=== PATIENT | female | born 2000 | race Caucasian/White ===

== ENCOUNTER → 2021-01-02 | Outpatient (REF) | payer OTHER | LOC: M LAB REF 12:19 | PROVIDERS: ATTEND Obstetrics & Gynecology | DX: Z34.03 Encounter for supervision of normal first pregnancy, third trimester (principal) ==

== ENCOUNTER 2021-02-03 11:51 | Inpatient (IN) | payer OTHER ==
[~2021-02-03] VITALS: Ht 157.5 cm; Wt 102.6 kg
[2021-02-03] VITALS (11 sets, daily range): BP systolic 107–143; BP diastolic 66–102
[2021-02-03] MEDS ORDERED: MULTTAB20 PO (12:13)
[2021-02-03] MEDS ORDERED: HOME MED LIST COMPLETE! XX SCH (12:15)
[2021-02-03] MEDS ORDERED: TRANEXAMIC ACID INJection 1,000 MG in NS 100 ML IV PRN (12:40)
[2021-02-03] MEDS ORDERED: OXYTOCIN DRIP 30 UNITS in IV 1 EA IV PRN (12:40)
[2021-02-03] MEDS ORDERED: METHYLERGONOVINE MALEATE 0.2 MG/ML VIAL (J2210) IM PRN (12:40)
[2021-02-03] MEDS ORDERED: LIDOCAINE 1% MDV 20ML VIAL INFIL PRN (12:40)
[2021-02-03] MEDS ORDERED: CARBOPROST TROMETHAMINE 250 MCG/ML AMP IM PRN (12:40)
[2021-02-03] MEDS ORDERED: LACTATED RINGER'S 1000 ML IV STA (12:40)
[2021-02-03 13:12] LABS: HEMATOCRIT 37.3 % (36.0-47.0); HEMOGLOBIN 12.7 g/dl (12.0-15.5); MEAN CORPUSCULAR HEMOGLOBIN 29.3 pg (27.0-33.0); MEAN CORPUSCULAR VOLUME 86.1 fl (80.0-96.0); PLATELET COUNT, AUTOMATED 276 10^3/uL (150-450); RED BLOOD COUNT 4.33 10^6/uL (4.00-5.40)
[2021-02-03 14:19] LABS: ALT/SGPT 15 U/L (12-78); BILIRUBIN,TOTAL 0.5 MG/DL (0.2-1.0); CREATININE FOR GFR 0.59 MG/DL (0.55-1.30); GLOMERULAR FILTRATION RATE > 60.0 (>60); LDH LACTATE DEHYDROGENASE 178 U/L (84-246); URIC ACID 4.6 MG/DL (2.6-6.0)
[2021-02-03 14:24] LABS: TOTAL PROTEIN,RANDOM URINE 35.6 MG/DL (0.0-12.0)
[2021-02-03] MEDS: miSOPROStol 50MCG 1/2 TABLET PO SCH ×2 (15:07→19:42)
--- NOTE | 2021-02-03 17:10 | HPEPDOC ---
Obstetrical History & Physical General Date of Admission Feb 03, 2021 at 11:51 Primary Care Physician: CHAR ESCOBAR CNM History of Present Illness Aster is a 20 year old at 39 5/7 with an ESTELLA of 02/05/2021 as confirmed by first trimester ultrasound who presents to labor and delivery for an elective IO L. She initiated her care in [place] and recently moved to the area and established at [facility] at 31 weeks. Her has been complicated by obesity. She denies uterine contractions, vaginal bleeding, pelvic pain, or loss of fluids. Reports active movement. Chief Complaint: Induction of labor Information Provided By: Patient Age: 20 : 1 Term: 0 Pre-term: 0 Abortions: 0 Livin Care Care: Good Care Dating Final EDC: Feb 05, 2021 Final EDC by: 1st trimester (US) LMP: May 02, 2020 Weeks + Days: 39.5 EGA at Admission: 39.5 Antepartum Course Height (inches): 62 Pre- weight (lbs.): 219 Admission Weight (lbs.): 224 Past Medical History Past Obstetrical History : Past Obstetrical History: Primg[employer] History: No pertinent history Past Medical History Medical History obesity Surgical History: Denies/None Family History Significant Family History: No pertinent family hx Social History Marital Status: Family situation: Spouse/partner home Psychosocial History: No pertinent psych hx * Smoker: non-smoker Alcohol: Denies Drugs: denies Abuse Violence Screening Have you been hit/kicked/slapp: No Have you been sexually assault: No Allergies Coded Allergies: No Known Allergies (Unverified , 02/03/21) Medications Scheduled No122/Iron/Folic Acid ( Multi Tablet) 1 Each Tablet, 1 TAB PO DAILY Physical Examination Physical Examination GENERAL: Alert and oriented times three. ABDOMEN: Gravid and non-tender to touch. FETUS: Is vertex (VTX) by sterile vaginal examination (SVE), fetus is vertex (VTX) by Rikki. LUNGS: breathing comfortably on room air, no use of accessory muscles. EXTREMITIES: mild bilateral pedal edema. No clonus.. Vital Signs/I&O Vital Signs Date Time Temp Pulse Resp B/P (MAP) Pulse Ox O2 Delivery O2 Flow Rate FiO2 02/03/21 16:05 99 142/92 (109) 02/03/21 12:10 97.6 18 Laboratory Data 24H LABS Laboratory Tests 2 02/03/21 11:59: Serology Scanned Report Hepatitis B Testing 02/03/21 12:52: Nucleated Red Blood Cells % (auto) 0.0, Glomerular Filtration Rate > 60.0, Uric Acid 4.6, Total Bilirubin 0.5, Aspartate Amino Transf (AST/SGOT) 13, Alanine Aminotransferase (ALT/SGPT) 15, Lactate Dehydrogenase 178, Syphilis Serology NONREACTIVE 02/03/21 13:39: Urine Random Creatinine 254.0, Urine Random Total Protein 35.6H, Coronavirus (COVID-19)(PCR) NEGATIVE Item Value Date Time Urine Random Creatinine 254.0 MG/DL 02/03/21 1339 Urine Random Total Protein 35.6 MG/DL H 02/03/21 1339 Item Value Date Time Creatinine 0.59 MG/DL 02/03/21 1252 Glomerular Filtration Rate > 60.0 02/03/21 1252 Uric Acid 4.6 MG/DL 02/03/21 1252 Total Bilirubin 0.5 MG/DL 02/03/21 1252 Alanine Aminotransferase (ALT/SGPT) 15 U/L 02/03/21 1252 Lactate Dehydrogenase 178 U/L 02/03/21 1252 Aspartate Amino Transf (AST/SGOT) 13 U/L 02/03/21 1252 CBC/BMP Laboratory Tests 02/03/21 12:52 Pertinent Laboratoy Data Blood Type: O- RBC Antibody Screen: Negative HIV: Negative Hepatitis B: Negative Hepatitis C: Negative Rapid Plasma Reagin: Nonreactive Rubella: Nonreactive (equivocal, needs rubella ) Varicella: Immune Chlamydia/Gonorrhea: Negative Group B Streptococcus: Negative Quad Screen Test: Declined Cystic Fibrosis: Declined Anatomy Ultrasound Ultrasound Date: Sep 19, 2020 Placenta Location: Anterior Normal Anatomy: Yes Placenta Previa: No Estimated Weight (grams): 299 Vaginal Examination Dilation: Fingertip Effacement: 30% Station: -3 Cervical Consistency: Medium Cervical Position: Posterior Presentation: Cephalic presentation Assessment Heart Rate (FHR): 145 Variability: Moderate Accelerations: Positive Decelerations: None Tocometer Contractions: No Multi-drug resistant Organism: No history of MDRO Assessment/Plan Assessment IUP at 39 5/7 weeks gestation, elective induction of labor, GBS negative, Category I FHR tracing Plan Admit to labor and delivery for induction. Counselled on misoprostol for cervical ripening, disa bulb for mechanical dilation, and IV pitocin for induction of labor Diet: regular. Group B Streptococcus (GBS) negative. Labs and intravenous (IV) per unit protocol. Anesthesia consult per patient request Lactated Ringers (LR): Bolus 800 mL prior to epidural, then at 125 mL/hr. Start Misoprostol per order. Pre-eclamptic labs ordered due to elevated BP on admission. Anticipate cervical ripening. C-S as appropriate. CHAR ESCOBAR CNM Feb 03, 2021 17:10
[2021-02-03] MEDS ORDERED: ACETAMINOPHEN 500 MG TAB PO PRN (17:15)
[2021-02-04] VITALS (17 sets, daily range): BP systolic 99–143; BP diastolic 54–90
[2021-02-04] MEDS: miSOPROStol 50MCG 1/2 TABLET PO SCH ×5 (03:05→16:34)
--- NOTE | 2021-02-04 12:02 | IPNPDOC ---
Obstetrical Progress Note Date of Service Feb 04, 2021 Subjective Pt comfortable, due for exam Objective Vital Signs Date Time Temp Pulse Resp B/P (MAP) Pulse Ox O2 Delivery O2 Flow Rate FiO2 02/04/21 08:31 97.5 83 129/71 (90) 02/04/21 06:28 14 Assessment Heart Rate Tracing: Category I Tocometer Contractions: Yes Frequency: regular, every 3-7 min. Sterile Vaginal Examination Dilation: 1cm Effacement (%): 50% Station: -1 Cervical Consistency: Medium Cervical Position: Posterior Assessment and Plan Age: 20 : 1 Term: 0 Status: Reassuring Anticipate: Vaginal Delivery Additional Comments Velasco balloon placed at this time. Will give next miso now OLVIN MAJANO MD Feb 04, 2021 12:02
[2021-02-04] MEDS ORDERED: OXYTOCIN DRIP 30 UNITS in IV 1 EA IV SCH (21:15)
[2021-02-04] MEDS ORDERED: LR 1,000 ML IV SCH (22:15)
--- NOTE | 2021-02-04 23:47 | IPNPDOC ---
Obstetrical Progress Note Date of Service Feb 04, 2021 Subjective Patient doing well, feeling her ctx. Objective Vital Signs Date Time Temp Pulse Resp B/P (MAP) Pulse Ox O2 Delivery O2 Flow Rate FiO2 02/04/21 22:48 86 16 121/73 (89) 02/04/21 22:16 97.9 Assessment Heart Rate (FHR): 125 Variability: Moderate Accelerations: Positive Decelerations: None Heart Rate Tracing: Category I Tocometer Contractions: Yes Frequency: irregular Sterile Vaginal Examination Dilation: 4 cm Effacement (%): 70% Station: -1 Cervical Consistency: Soft Cervical Position: Middle Postion/Presentation: Cephalic presentation Assessment and Plan Age: 20 : 1 Term: 0 Status: Reassuring Group B Streptococcus: Negative Anticipate: Vaginal Delivery Additional Comments AROM for clears at this time OLVIN MAJANO MD Feb 04, 2021 23:47
[2021-02-05] VITALS (34 sets, daily range): BP systolic 102–138; BP diastolic 55–84
[2021-02-05] MEDS ORDERED: FENTANYL 2MCG/ML ROPIVACAINE 0.2% IN 0.9% NACL 100ML IVBAG As Ordered ONE (00:42)
[2021-02-05] MEDS ORDERED: EPIDURAL/PCA KEYS XX PRN (01:05)
[2021-02-05] MEDS ORDERED: NALOXONE INJ 0.4MG/1ML VIAL (J2310 PER 1MG) IV PRN (01:05)
[2021-02-05] MEDS ORDERED: LACTATED RINGER'S 1000 ML IV PRN (01:05)
[2021-02-05] MEDS ORDERED: EPIDURAL COMMENT XX SCH (01:05)
[2021-02-05] MEDS ORDERED: ePHEDrine SULFATE 25 MG/5 ML(5MG/ML) SYRINGE IV PRN (01:05)
[2021-02-05] MEDS ORDERED: diphenhydrAMINE 50MG/ML VIAL (J1200) IV PRN (01:05)
[2021-02-05] MEDS ORDERED: REFRIGERATOR IV KEYS XX PRN (01:05)
[2021-02-05] MEDS ORDERED: ONDANSETRON 4MG/2ML VIAL IV PRN (01:05)
[2021-02-05] MEDS ORDERED: FENTANYL/ROPIVACAINE/NACL BAG 100 ML EPIDURAL SCH (01:05)
[2021-02-05] MEDS ORDERED: ePHEDrine SULFATE 25 MG/5 ML(5MG/ML) SYRINGE As Ordered ONE (01:22)
[2021-02-05] MEDS ORDERED: METHYLERGONOVINE MALEATE 0.2 MG TAB PO PRN (02:55)
[2021-02-05] MEDS ORDERED: DIBUCAINE 1% OINTMENT 30GM TOP PRN (02:55)
[2021-02-05] MEDS ORDERED: RHOGAM 300 MCG (1500 IU) INJ (J2790) IM SCH (02:55)
[2021-02-05] MEDS ORDERED: MEASLES,MUMPS,RUBELLA VACCINE INJ (MMR-II) (90707) SC SCH (02:55)
[2021-02-05] MEDS ORDERED: DOCUSATE SODIUM 100MG CAPSULE PO PRN (02:55)
[2021-02-05] MEDS ORDERED: ACETAMINOPHEN 500 MG TAB PO PRN (02:55)
--- NOTE | 2021-02-05 03:09 | DNPDOC ---
[facility] Delivery Note Delivery Note DATE OF DELIVERY: 02/05/2021 PREDELIVERY DIAGNOSIS: 39-6/7 weeks' gestation and elective induction of labor. POST DELIVERY DIAGNOSIS: Delivered. PROCEDURE: Spontaneous vaginal delivery. PENOLOGY TEACHER: Dr. Olvin Majano ANESTHESIA: Epidural. ESTIMATED BLOOD LOSS: 150 mL. FINDINGS: 6 pound 14 ounce male infant, Score 9/9, nuchal cord times 1, tight reduced at the perineum. DELIVERY SUMMARY: Patient is a 20-year-old 1 now para 1 who was admitted to labor and delivery for elective induction of labor. She got 6 doses of misoprostol for cervical ripening and a Velasco balloon was placed at 1156 once she reached 1 cm dilated. The Velasco balloon came out at 2124 and she was start ed on regular dose Pitocin. She was checked at 2335 and ruptured for clear fluid at that time. After AROM the patient made rapid progression to 10 cm dilated at 0146. The patient pushed with excellent effort and delivered a vigorous male with a tight nuchal cord reduced at the perineum. The rest of the infant body delivered atraumatically and after 30 second delay the c ord was clamped and cut. Attention was turned to the placenta which was expressed without difficulty. A first-degree perineal laceration was noted and repaired with a 3-0 Vicryl suture. Fundus was found to be firm with no expression of clots on fundal massage. Sponge and sharp counts correct. OLVIN MAJANO MD Feb 05, 2021 03:09
[2021-02-05] MEDS: PRENATAL VITAMINS CHEWABLE TABLET PO SCH (08:32)
[2021-02-05] MEDS: IBUPROFEN 600MG TAB PO PRN ×2 (08:33→20:28)
[2021-02-06 06:00] VITALS: BP 125/76
[2021-02-06] MEDS: PRENATAL VITAMINS CHEWABLE TABLET PO SCH (08:44)
[2021-02-06 09:20] LABS: HEMATOCRIT 36.5 % (36.0-47.0); HEMOGLOBIN 11.9 g/dl (12.0-15.5); MEAN CORPUSCULAR HEMOGLOBIN 29.2 pg (27.0-33.0); MEAN CORPUSCULAR HGB CONC 32.6 g/dl (32.0-36.5); MEAN CORPUSCULAR VOLUME 89.7 fl (80.0-96.0); PLATELET COUNT, AUTOMATED 247 10^3/uL (150-450); RED BLOOD COUNT 4.07 10^6/uL (4.00-5.40); WHITE BLOOD COUNT 15.7 10^3/uL (4.0-10.0)
--- NOTE | 2021-02-06 13:12 | IPNPDOC ---
Progress Note Date of Service: Feb 06, 2021 Progress Note SUBJECT: Status post . She has been ambulating, voiding spontaneously without issue and tolerating regular diet. Lochia decreasing/minimal. Pain is well-controlled. Denies headache, visual changes, right upper quadrant pain, shortness breath or chest pain. OBJECTIVE: VITAL SIGNS: Within normal limits, afebrile. Alert and oriented times three. Abdomen: Fundus firm at U-2. Soft, NTTP. ASSESSMENT: Status post uncomplicated spontaneous vaginal delivery. Vitals within normal limits, afebrile, hemodynamically stable with no evidence of infection. PLAN: Discharge to home today. Tylenol and Motrin for pain. Routine instructions/precautions reviewed. Routine PP visit in 6 weeks in clinic. VS, I&O, 24H, Fishbone Vital Signs/I&O Vital Signs Date Time Temp Pulse Resp B/P (MAP) Pulse Ox O2 Delivery O2 Flow Rate FiO2 02/06/21 06:00 97.4 94 20 125/76 (92) 97 Room Air Laboratory Data 24H LABS Laboratory Tests 2 02/06/21 09:09: Nucleated Red Blood Cells % (auto) 0.0 CBC/BMP Laboratory Tests 02/06/21 09:09 ELBERT BARROS DO Feb 06, 2021 13:12
== END 2021-02-06 14:05 | disposition home or self-care (01) | DRG 807 ==
LOC: M LDI 11:51 → M OBS 02-05 04:26
PROVIDERS: ADMIT Advanced Practice Midwife; ATTEND Obstetrics & Gynecology
PROC: 3E0P7GC Introduction of Other Therapeutic Substance into Female Reproductive, Via Natural or Artificial Opening (ICD-10-PCS; 2021-02-03)
PROC: 10907ZC Drainage of Amniotic Fluid, Therapeutic from Products of Conception, Via Natural or Artificial Opening (ICD-10-PCS; 2021-02-04)
PROC: 10E0XZZ Delivery of Products of Conception, External Approach (ICD-10-PCS; principal; 2021-02-05)
PROC: 0HQ9XZZ Repair Perineum Skin, External Approach (ICD-10-PCS; 2021-02-05)
DX: O99.214 Obesity complicating childbirth (principal); Z37.0 Single live birth; Z3A.39 39 weeks gestation of pregnancy; E66.9 Obesity, unspecified; O69.1XX0 Labor and delivery complicated by cord around neck, with compression, not applicable or unspecified; O70.0 First degree perineal laceration during delivery

== ENCOUNTER → 2021-10-21 | Outpatient (REF) | payer OTHER ==
[~2021-10-21] MED LIST: MULTTAB20 PO
[2021-10-21 18:07] LABS: HEMATOCRIT 39.3 % (36.0-47.0); HEMOGLOBIN 12.8 g/dl (12.0-15.5); MEAN CORPUSCULAR HEMOGLOBIN 28.7 pg (27.0-33.0); MEAN CORPUSCULAR HGB CONC 32.6 g/dl (32.0-36.5); MEAN CORPUSCULAR VOLUME 88.1 fl (80.0-96.0); PLATELET COUNT, AUTOMATED 208 10^3/uL (150-450); RED BLOOD COUNT 4.46 10^6/uL (4.00-5.40); WHITE BLOOD COUNT 9.1 10^3/uL (4.0-10.0)
[2021-10-21 19:20] LABS: HCG, SERUM QUANTITATIVE 19215 MIU/ML
[2021-10-21 19:53] LABS: HEPATITIS B SURFACE ANTIGEN NEGATIVE (NEGATIVE)
[2021-10-21 20:21] LABS: HEPATITIS C VIRUS ABY INDEX < 0.0 INDEX (<0.8)
[2021-10-21 20:22] LABS: HIV 1&2 SCREEN CENTAUR NEGATIVE (NEGATIVE)
== END ==
LOC: M LAB REF 16:24
PROVIDERS: ATTEND Obstetrics & Gynecology
DX: Z32.01 Encounter for pregnancy test, result positive (principal); O36.80X0 Pregnancy with inconclusive fetal viability, not applicable or unspecified

== ENCOUNTER → 2022-02-24 | Outpatient (CLI) | payer OTHER | LOC: M WHC 13:04 | PROVIDERS: ATTEND Obstetrics & Gynecology | DX: Z36.87 Encounter for antenatal screening for uncertain dates (principal); Z3A.24 24 weeks gestation of pregnancy ==

== ENCOUNTER → 2022-03-09 | Outpatient (CLI) | payer OTHER ==
[2022-03-09 17:45] LABS: HEMATOCRIT 37.2 % (36.0-47.0); HEMOGLOBIN 12.4 g/dl (12.0-15.5); MEAN CORPUSCULAR HEMOGLOBIN 29.7 pg (27.0-33.0); MEAN CORPUSCULAR HGB CONC 33.3 g/dl (32.0-36.5); MEAN CORPUSCULAR VOLUME 89.2 fl (80.0-96.0); PLATELET COUNT, AUTOMATED 286 10^3/uL (150-450); RED BLOOD COUNT 4.17 10^6/uL (4.00-5.40); WHITE BLOOD COUNT 12.3 10^3/uL (4.0-10.0)
[2022-03-09 19:12] LABS: GC DNA AMPLIFICATION NEGATIVE (NEGATIVE)
== END ==
LOC: M PLALAB 14:05
PROVIDERS: ATTEND Advanced Practice Midwife
DX: O99.212 Obesity complicating pregnancy, second trimester (principal); E66.9 Obesity, unspecified; Z3A.00 Weeks of gestation of pregnancy not specified

== ENCOUNTER → 2022-03-10 | Outpatient (CLI) | payer OTHER | LOC: M WHC 13:46 | PROVIDERS: ATTEND Advanced Practice Midwife | DX: O99.212 Obesity complicating pregnancy, second trimester (principal) ==

== ENCOUNTER → 2022-05-20 | Outpatient (REF) | payer OTHER | LOC: M PLALAB 13:02 | PROVIDERS: ATTEND Advanced Practice Midwife | DX: Z34.80 Encounter for supervision of other normal pregnancy, unspecified trimester (principal) ==

== ENCOUNTER 2022-06-13 17:15 | Inpatient (IN) | payer OTHER ==
[~2022-06-13] VITALS: Ht 157.5 cm; Wt 108.6 kg
[2022-06-13] VITALS (20 sets, daily range): BP systolic 109–142; BP diastolic 58–84
[2022-06-13] MEDS ORDERED: TRANEXAMIC ACID INJection 1,000 MG in NS 100 ML IV PRN (17:25)
[2022-06-13] MEDS ORDERED: LACTATED RINGER'S 1000 ML IV PRN (17:25)
[2022-06-13] MEDS ORDERED: METHYLERGONOVINE MALEATE 0.2MG/ML 1ML VIAL IM PRN (17:25)
[2022-06-13] MEDS ORDERED: CARBOPROST TROMETHAMINE 250 MCG/ML AMP IM PRN (17:25)
[2022-06-13] MEDS ORDERED: OXYTOCIN DRIP 30 UNITS in IV 1 EA IV PRN ×4 (17:25)
[2022-06-13 18:37] LABS: HEMATOCRIT 36.8 % (36.0-47.0); HEMOGLOBIN 12.3 g/dl (12.0-15.5); MEAN CORPUSCULAR HEMOGLOBIN 29.2 pg (27.0-33.0); MEAN CORPUSCULAR HGB CONC 33.4 g/dl (32.0-36.5); MEAN CORPUSCULAR VOLUME 87.4 fl (80.0-96.0); PLATELET COUNT, AUTOMATED 274 10^3/uL (150-450); RED BLOOD COUNT 4.21 10^6/uL (4.00-5.40); WHITE BLOOD COUNT 15.3 10^3/uL (4.0-10.0)
[2022-06-13] MEDS ORDERED: LR 1,000 ML IV SCH (19:20)
[2022-06-13] MEDS ORDERED: OXYTOCIN DRIP 30 UNITS in IV 1 EA IV SCH (19:20)
[2022-06-13] MEDS ORDERED: NALOXONE INJ 0.4MG/1ML VIAL IV PRN (22:10)
[2022-06-13] MEDS ORDERED: LR 500 ML IV PRN (22:10)
[2022-06-13] MEDS ORDERED: EPIDURAL/PCA KEYS XX PRN (22:10)
[2022-06-13] MEDS ORDERED: FENTANYL/ROPIVACAINE/NACL BAG 100 ML EPIDURAL SCH (22:10)
[2022-06-13] MEDS ORDERED: ONDANSETRON 4MG 2ML VIAL IV PRN (22:10)
[2022-06-13] MEDS ORDERED: diphenhydrAMINE 50MG/ML VIAL IV PRN (22:10)
[2022-06-13] MEDS ORDERED: ePHEDrine SULFATE 25 MG/5 ML(5MG/ML) SYRINGE IVP PRN (22:10)
[2022-06-13] MEDS ORDERED: DIBUCAINE 1% OINTMENT 30GM TOP PRN (23:50)
[2022-06-13] MEDS ORDERED: DOCUSATE SODIUM 100MG CAPSULE PO PRN (23:50)
[2022-06-13] MEDS ORDERED: METHYLERGONOVINE MALEATE 0.2 MG TAB PO PRN (23:50)
[2022-06-13] MEDS ORDERED: RHOGAM 300MCG (1500IU) INJ IM SCH (23:50)
[2022-06-14] VITALS (8 sets, daily range): BP systolic 109–133; BP diastolic 61–73
[2022-06-14] MEDS: IBUPROFEN 600MG TAB PO PRN ×3 (01:04→18:15)
[2022-06-14 07:49] LABS: HEMATOCRIT 32.8 % (36.0-47.0); HEMOGLOBIN 10.8 g/dl (12.0-15.5); MEAN CORPUSCULAR HGB CONC 32.9 g/dl (32.0-36.5); MEAN CORPUSCULAR VOLUME 87.9 fl (80.0-96.0); PLATELET COUNT, AUTOMATED 213 10^3/uL (150-450); RED BLOOD COUNT 3.73 10^6/uL (4.00-5.40); WHITE BLOOD COUNT 16.9 10^3/uL (4.0-10.0)
[2022-06-14] MEDS: PRENATAL VITAMINS CHEWABLE TABLET PO SCH (07:54)
[2022-06-14] MEDS: ACETAMINOPHEN 500 MG TAB PO PRN ×2 (12:59→19:40)
[2022-06-15] MEDS: IBUPROFEN 600MG TAB PO PRN ×2 (00:30→08:14)
[2022-06-15] MEDS: PRENATAL VITAMINS CHEWABLE TABLET PO SCH (08:44)
[2022-06-15] MEDS ORDERED: MEASLES,MUMPS,RUBELLA VACCINE INJ (MMR-II) SC.IMMUN ONE (09:00)
[2022-06-15] MEDS ORDERED: IBUP-1022 PO (12:18)
[2022-06-15] MEDS ORDERED: ACET-683 PO (12:18)
[2022-06-15 12:20] VITALS: BP 121/74
== END 2022-06-15 13:10 | disposition home or self-care (01) | DRG 807 ==
LOC: M LDI 17:15 → M OBS 06-14 01:40
PROVIDERS: ADMIT Obstetrics & Gynecology; ATTEND Obstetrics & Gynecology
PROC: 10E0XZZ Delivery of Products of Conception, External Approach (ICD-10-PCS; principal; 2022-06-13)
PROC: 3E033VJ Introduction of Other Hormone into Peripheral Vein, Percutaneous Approach (ICD-10-PCS; 2022-06-13)
PROC: 10907ZC Drainage of Amniotic Fluid, Therapeutic from Products of Conception, Via Natural or Artificial Opening (ICD-10-PCS; 2022-06-13)
DX: O48.0 Post-term pregnancy (principal); Z37.0 Single live birth; Z3A.40 40 weeks gestation of pregnancy; O99.214 Obesity complicating childbirth; E66.9 Obesity, unspecified; O70.0 First degree perineal laceration during delivery

== ENCOUNTER → 2022-09-15 | Outpatient (REF) | payer OTHER ==
[~2022-09-15] MED LIST changes: +ACET-683 PO; +IBUP-1022 PO
== END ==
LOC: M PLALAB 14:37
PROVIDERS: ATTEND Obstetrics & Gynecology
DX: Z01.419 Encounter for gynecological examination (general) (routine) without abnormal findings (principal)

== ENCOUNTER → 2024-04-17 | Outpatient (CLI) | payer OTHER ==
[2024-04-17 16:08] LABS: INR 0.98; PARTIAL THROMBOPLASTIN TIME 30.6 SECONDS (24.8-34.2); PROTHROMBIN TIME 13.3 SECONDS (12.5-14.5)
== END ==
LOC: M LAB 14:52
PROVIDERS: ATTEND Nurse Practitioner Adult Health
DX: R23.3 Spontaneous ecchymoses (principal)

== ENCOUNTER → 2024-04-18 | Outpatient (CLI) | payer OTHER ==
[2024-04-18 15:44] LABS: BASO # 0.1 10^3/uL (0.0-0.2); BASO % 0.5 % (0.0-1.0); EOS # 0.1 10^3/uL (0.0-0.5); EOS % 0.9 % (0.0-3.0); HEMOGLOBIN 12.9 g/dl (12.0-15.5); LYMPH # 2.6 10^3/uL (1.5-5.0); MEAN CORPUSCULAR HEMOGLOBIN 28.9 pg (27.0-33.0); MEAN CORPUSCULAR HGB CONC 33.1 g/dl (32.0-36.5); MEAN CORPUSCULAR VOLUME 87.2 fl (80.0-96.0); MONO % 8.5 % (2.0-8.0); NEUTROPHILS # 7.9 10^3/uL (1.5-8.5); NEUTROPHILS % 67.8 % (36.0-66.0); PLATELET COUNT, AUTOMATED 347 10^3/uL (150-450); RED BLOOD COUNT 4.47 10^6/uL (4.00-5.40); WHITE BLOOD COUNT 11.7 10^3/uL (4.0-10.0)
== END ==
LOC: M LAB 15:13
PROVIDERS: ATTEND Nurse Practitioner Adult Health
DX: R23.3 Spontaneous ecchymoses (principal)